=== PATIENT | male | born 1995 | race Caucasian/White ===

== ENCOUNTER 2019-11-01 16:48 | Emergency (ER) | payer SELFPAY ==
[~2019-11-01] VITALS: Ht 185.4 cm; Wt 90.0 kg
[2019-11-01] MEDS ORDERED: FLEXERIL PO (18:21)
[2019-11-01] MEDS ORDERED: NAPROXEN500 MG PO (18:21)
[2019-11-01 18:26] VITALS: BP 129/79
== END 2019-11-01 18:26 | disposition home or self-care (01) | DRG 552 ==
LOC: ED 16:48
DX: S33.5XXA Sprain of ligaments of lumbar spine, initial encounter (principal); X50.0XXA Overexertion from strenuous movement or load, initial encounter; Y92.007 Garden or yard of unspecified non-institutional (private) residence as the place of occurrence of the external cause

== ENCOUNTER 2020-09-16 01:07 | Emergency (ER) | payer SELFPAY ==
[~2020-09-16 01:07] MED LIST: FLEXERIL PO; NAPROXEN500 MG PO
== END 2020-09-16 01:40 | disposition left against medical advice (07) | DRG 951 ==
LOC: ED 01:07 → LWOBS 01:40
DX: Z53.21 Procedure and treatment not carried out due to patient leaving prior to being seen by health care provider (principal)

== ENCOUNTER 2022-02-13 10:19 | Emergency (ER) | payer OTHER ==
[~2022-02-13] VITALS: Ht 185.4 cm; Wt 86.4 kg
[2022-02-13 14:03] VITALS: BP 170/108
[2022-02-13] MEDS ORDERED: CLINDAMYCIN HC150 MG PO (14:22)
[2022-02-13 14:31] VITALS: BP 144/109
[2022-02-13] MEDS ORDERED: PEPCID20 MG PO (14:31)
[2022-02-13 14:40] VITALS: BP 144/109
== END 2022-02-13 14:45 | disposition home or self-care (01) ==
LOC: ED 10:19
DX: K04.7 Periapical abscess without sinus (principal); K02.9 Dental caries, unspecified; K08.409 Partial loss of teeth, unspecified cause, unspecified class